=== PATIENT | male | born 1960 ===

== ENCOUNTER 2025-01-24 08:47 | Day surgery (SDC) | payer MEDICARE ==
[2025-01-24] VITALS (14 sets, daily range): BP systolic 88–145; BP diastolic 58–107
[~2025-01-24] VITALS: Ht 177.8 cm; Wt 73.6 kg
[~2025-01-24 08:47] MED LIST: BIPERIDEN PO; CARBLEV250 SL; THERA-D2000 UNIT PO
[2025-01-24] MEDS ORDERED: Glycopyrrolate 0.2 MG/ML 1MLVIAL ONE (10:00)
--- NOTE | 2025-01-24 10:11 | NUR ---
01/24/25 1011 [address]ine Frederick CONFIRMED AND REVIEWED H&P, MEDCICATIONS, ALLERGIES, MEDICAL HISTORY, RESPIRATORY HISTORY, VITAL SIGNS, 3-LEAD EKG, CONSENTS, AND PHYSICIAN ORDERS. PATIENT CONFIRMS NPO STATUS AND AGREES WITH SCHEDULED PROCEDURE. MONITOR INTACT WITH CONTINUOUS PULSE OXIMETRY, CAPNOGRAPHY, 3-LEAD EKG, INTERMITTENT BP. SUPPLEMENTAL O2 TO BE TITRATED THROUGHOUT PROCEDURE TO MAINTAIN O2 SATURATION ABOVE 90%. PATIENT DETERMINED TO BE ASA APPROPRIATE FOR PROPOFOL SEDATION PRIOR TO START OF PROCEDURE BY DR. THOMPSON
--- NOTE | 2025-01-24 11:05 | NUR ---
Patient up to Ambulate independently. Gait steady. Discharge instructions reviewed with patient. Patient verbalizes understanding. Copy given to patient to take home. Patient States Post-Procedure ride home has been arranged. Discharged via wheelchair to private car for ride home. PT DECLINES PO, REPORTS READY TO GO HOME. PT BEEN ASSISTED WITH WARM BLANKETS PER REQ.
== END 2025-01-24 11:06 | disposition home or self-care (01) ==
LOC: ORSCMMR 08:47 → ORD 09:30 → ORSCMMR 09:30 → ORD 14:45
PROVIDERS: Family Medicine
PROC: 0DBK8ZX Excision of Ascending Colon, Via Natural or Artificial Opening Endoscopic, Diagnostic (ICD-10-PCS; principal; 2025-01-24 09:30)
PROC: 0DBH8ZX Excision of Cecum, Via Natural or Artificial Opening Endoscopic, Diagnostic (ICD-10-PCS; principal; 2025-01-24 09:30)
PROC: 0DBN8ZX Excision of Sigmoid Colon, Via Natural or Artificial Opening Endoscopic, Diagnostic (ICD-10-PCS; principal; 2025-01-24 09:30)
PROC: 0DBP8ZX Excision of Rectum, Via Natural or Artificial Opening Endoscopic, Diagnostic (ICD-10-PCS; principal; 2025-01-24 09:30)
DX: Z12.11 Encounter for screening for malignant neoplasm of colon (principal); D12.0 Benign neoplasm of cecum; D12.2 Benign neoplasm of ascending colon; D12.8 Benign neoplasm of rectum; K63.5 Polyp of colon; K64.4 Residual hemorrhoidal skin tags; K64.0 First degree hemorrhoids; G20.A1 Parkinson's disease without dyskinesia, without mention of fluctuations; N40.0 Benign prostatic hyperplasia without lower urinary tract symptoms; E03.9 Hypothyroidism, unspecified; Z79.899 Other long term (current) drug therapy
CPT/HCPCS: 88305; J2704; J7120